=== PATIENT | male | born 1960 | race Caucasian/White ===

== ENCOUNTER 2023-07-28 10:45 | Outpatient (RCR) | payer MEDICARE, SELFPAY | END 2023-11-25 23:59 | disposition home or self-care (01) | PROVIDERS: PCP Surgery; Visit Provider Specialist | DX: Z48.89 Encounter for other specified surgical aftercare (principal); R29.898 Other symptoms and signs involving the musculoskeletal system; M25.69 Stiffness of other specified joint, not elsewhere classified; M54.50 Low back pain, unspecified; Z51.89 Encounter for other specified aftercare | CPT/HCPCS: 97112; 97162 ==

== ENCOUNTER 2024-12-11 09:04 | Outpatient (CLI) | payer MEDICARE, SELFPAY ==
--- NOTE | 2024-12-11 09:15 | CRLHL7_ITS ---
For Patients: As a result of the 21st Century Cures Act, medical imaging exams and procedure reports are released immediately into your electronic medical record. You may view this report before your referring provider. If you have questions, please contact your health care provider. INDICATION: Cervical spinal stenosis. COMPARISON: 03/17/2015. TECHNIQUE: Sagittal T1, T2, and STIR sequences. Axial T2/gradient sequences. FINDINGS: Degenerative anterolisthesis of C4 on C5 measures approximately 3 mm. Otherwise, normal facet alignment. No fractures. No vertebral body loss of height. Stable mature postoperative changes of anterior discectomy and fusion C6 through T1. Patchy T2 and STIR hyperintensity of the cord at C4-5 which may be secondary to chronic myelomalacia or spondylotic myelopathy. Normal signal intensity within the remainder of the cord. C1-2: No spinal canal narrowing. C2-3: Disc degeneration posterior disc bulge. No narrowing of the spinal canal. No neural foraminal narrowing. C3-4: Disk degeneration and posterior disc bulging disc osteophyte complex. Effacement of the ventral thecal sac. Combined with buckling of ligamentum flavum, there is moderate severe narrowing of spinal canal. Moderate severe narrowing of bilateral foramina potential impingement of the C4 nerve roots. C4-5: Grade 1 anterolisthesis. Disc degeneration and unroofed posterior disc bulge. Combined with buckling ligamentum flavum, there is severe narrowing of spinal canal. Severe narrowing of the bilateral foramina. Potential impingement of the C5 nerve roots. C5-6: Disc generation broad-based disc osteophyte complex. Mild narrowing of spinal canal. Moderate right and mild left neural foraminal narrowing. C6-7: Postoperative changes. No spinal canal neural foraminal narrowing. C7-T1: Postoperative changes. No narrowing of spinal canal. Mild narrowing of bilateral foramina. T1-2: Disk degeneration and posterior disc bulging disc osteophyte complex. Mild narrowing of the spinal canal. Moderate narrowing of bilateral foramina. IMPRESSION: 1. Degenerative anterolisthesis of C4 on C5. Otherwise normal alignment. No fractures 2. Stable mature postoperative changes anterior discectomy and fusion C6 through T1. 3. Patchy T2 and STIR hyperintensity of the cord at C4-5 which may be secondary to chronic myelomalacia or spondylotic myelopathy 4. Cervical spondylosis 5. At C3-4, moderate to severe narrowing of the spinal canal. Moderate to severe narrowing of the bilateral neural foramina. Potential impingement of the C4 nerve roots. 6. At C4-5, Severe narrowing of the spinal canal and bilateral neural foramina. Potential impingement of the C5 nerve roots. 7. At C5-6, Moderate right and mild left neural foraminal narrowing. 8. At T1-2, moderate narrowing of the bilateral neural foramina Dictated by Shahzad Adames MD @ 12/11/2024 3:07:33 PM (Electronically Signed)
== END 2024-12-11 09:05 | disposition home or self-care (01) ==
LOC: MRI 09:08
PROVIDERS: PCP Surgery; Visit Provider Surgery
DX: M48.02 Spinal stenosis, cervical region (principal); M47.892 Other spondylosis, cervical region; M50.21 Other cervical disc displacement, high cervical region; M50.222 Other cervical disc displacement at C5-C6 level; M54.12 Radiculopathy, cervical region
CPT/HCPCS: 72141

== ENCOUNTER 2025-01-02 08:05 | Outpatient (CLI) | payer MEDICARE, SELFPAY | END 2025-01-02 08:06 | disposition home or self-care (01) | LOC: MRI 08:07 | PROVIDERS: PCP Surgery; Visit Provider Specialist | DX: M54.50 Low back pain, unspecified (principal); M48.062 Spinal stenosis, lumbar region with neurogenic claudication; M51.27 Other intervertebral disc displacement, lumbosacral region | CPT/HCPCS: 72148 ==

== ENCOUNTER 2025-02-19 07:46 | Outpatient (CLI) | payer MEDICARE, SELFPAY | END 2025-02-19 07:47 | disposition home or self-care (01) | LOC: INJ CL 07:46 | PROVIDERS: PCP Surgery; Visit Provider Family Medicine | DX: M48.061 Spinal stenosis, lumbar region without neurogenic claudication (principal); M54.16 Radiculopathy, lumbar region | CPT/HCPCS: 64483; J1100; Q9966 ==

== ENCOUNTER 2025-04-30 09:03 | Outpatient (CLI) | payer MEDICARE, SELFPAY ==
--- OUTSIDE RECORDS SUMMARY | 2025-05-01 00:46 | XMS_ITS | Clinical Summary ---
Author Organization [employer] [facility] Address [address] [place] [id number] Care Team Providers Care Library Consultant Name Role Phone Syd José MD Primary Care Provider +- [phone] [facility] Care, [place] Unavailable Allergies Active Allergy Reactions Criticality Noted Date Comments Venom-Honey Bee Edema 12/27/2012 Grass Pollen Other - Describe In Comment Field 03/20/2021 Sneezing Oxycodone Other - Describe In Comment Field 11/25/2016 Patient states it does not work for pain for him. Tree And Shrub Pollen Other - Describe I n Comment Field 03/20/2021 Sneezing Unlisted Allergen (Include Detail In Comments) Angioedema High 01/16/2018 Pt states he is allergic to tree nuts. Medications EPINEPHrine (EPIPEN) 0.3 mg/0.3 mL injection Inject 0.3 mg intramuscular each time if needed for Allergic Reaction. 03/20/20 21 Active acetaminophen (TYLENOL EXTRA STRGTH) 500 mg tablet Take 1,000 mg by mouth every 6 hours if needed for Pain. Max acetaminophen dose: 4000mg in 24 hrs. Active amLODIPine (NORVASC) 10 mg tabletIndications: Hypertension Take 1 Tablet (10 mg) by mouth once daily. 90 Tablet 3 09/27/20 24 Active hydroCHLOROthiazid e 12.5 mg tabletIndications: Hypertension Take 1 Tablet (12.5 mg) by mouth once daily. 90 Tablet 3 09/27/20 24 Active losartan (COZAAR) 100 mg tabletIndications: Hypertension Take 1 Tablet (100 mg) by mouth once daily. 90 Tablet 3 09/27/20 24 Active diclofenac (VOLTAREN) 75 mg delayed-release tabletIndications: Polyarthralgia,Lum bar spondylosis,Genera lized osteoarthritis of multiple sites Take 1 Tablet (75 mg) by mouth two times daily with meals. 60 Tablet 3 01/10/20 25 Active cholecalciferol (Decara) 50,000 unit capsuleIndications :Vitamin D deficiency Take 1 Capsule (50,000 units) by mouth once weekly. 12 Capsule 01/16/20 25 Active DULoxetine 30 mg Delayed-release capsuleIndications :Generalized osteoarthritis of multiple sites Take 1 Capsule (30 mg) by mouth once daily. 60 Capsule 1 01/29/20 25 Active amitriptyline 10 mg tabletIndications: Cervical spinal stenosis TAKE ONE TABLET (10 MG) BY MOUTH EVERY DAY AT BEDTIME . 90 Tablet 3 02/13/20 25 Active gabapentin 300 mg capsuleIndications :Lumbosacral radiculopathy TAKE ONE CAPSULE (300 MG) BY MOUTH TWICE A DAY . 180 Capsule 3 02/10/20 25 Active Active Problems Problem Noted Date Diagnosed Date Ascending aorta dilatation 12/23/2024 Overview (12/23/2024): 4.0 cm on heartscan 12/2024 - repeat in 1 year Lumbosacral radiculopathy 04/19/20232022 Status post total replacement of right hip 10/24 Tobacco use 10/24/2019 Moderate episode of recurrent major depressive d isorder 04/17/2019 History of Alcohol use disorder 06/07/2018 DDD (degenerative disc disease), lumbar 12/03/19 16 Family history of malignant neoplasm of gastrointestinal tract 01/30/2013 Overview (03/31/2023): Colonoscopy 01/2013 normal repeat in 5 years Colonoscopy 03/2023 normal, repeat in 5 years Cluster headache 04/06/2011 Stenosis, cervical spine 07/06/2010 Hypertension 04/04/2009 Obesity, unspecified 05/15/2007 Hymenoptera allergy S/P lumbar spinal fusion Generalized anxiety disorder Resolved Problems Problem Noted Date Diagnosed Date Resolved Date Oxygen desaturation 04/19/2023 12/04/19 25 Bradycardia 04/19/2023 12/04/2024 Anxiety 10/24/2019 03/20/2021 Sore throat 08/12/2019 03/20/2021 Acute encephalopathy 08/08/2019 021 Suzanne 08/08/2019 03/20/2021 Acute confusion 08/06/2019 08/08/2019 Personality disorder 08/02/2019 021 Arthritis of right hip 08/02/201903/20 Right hip pain 08/02/2019 03/20/2021 Arthritis of left hip 08/02/20192020 Left hip pain 08/02/2019 03/20/2021 Routine adult health maintenance 03/14/2018 03/20/2021 Overview (03/14/2018): Colonoscopy 03/2018 normal, repeat in 5 years Controlled substance agreement terminated 06/16/2017 12/04/2024 Lumbar stenosis 11/23/2016 03/20/2021 Elevated partial thromboplastin time (PTT) 11/23/2016 05/13/2022 Bradycardia 11/23/2016 03/20/2021 Pain medication agreement 10/28/2016 Overview (10/28/2016): Prescriber: Dr. Foster Mo, [facility] Juan Altamirano MD Ok to fill at same amount/dose/frequency in my absence. Controlled substance agreement: 10/28/16 COMPOUNDING ASSISTANT query on 10/28/16 was acceptable. Last UDS on (none on file). Lumbar facet arthropathy 12/03/2015 Lumbar radicular pain 12/03/20152020 Tobacco use disorder 05/15/2007 021 Headache(784.0) 05/15/2007 04/06/2011 Postoperative back pain 03/07 Acute post-operative pain History of Opioid dependence , continuous, now in remission 07/14/2022 Wound infection after surgery 03/20/2021 Encounters Date Type Department Care Team Description 04/30/2025 9:40 AM CDT Office Visit [facility] at [address] [address] Foster Mo MD Procedure (Bilateral L5-S1 TFESI) 04/25/2025 10:30 AM CDT Procedure Only [facility] [address] [facility] [place] [address] Vida Huang L Ac Acupuncture 04/25/2025 Travel 04/18/2025 10:30 AM CDT Procedure Only [facility] [address] [facility] [address] Vida Huang L Ac Acupuncture 04/18/2025 Travel 04/12/2025 11:00 AM CDT Procedure Only [facility] [address] [facility] [place] [address] Vida Huang L Ac Acupuncture 04/12/2025 Travel 04/10/2025 11:20 AM CDT Office Visit [facility] [address] [place] [address] Foster Mo MD Musculoskeletal Problem (Follow up back pain, JUAN on 02/19/25/Consult neck pain) 04/10/2025 Travel 04/05/2025 10:00 AM CDT Procedure Only [facility] [address] [facility] [place] [address] Vida Huang, Denise Ac Acupuncture 04/05/2025 Travel 03/29/2025 10:00 AM CDT Procedure Only [facility] [address] [place] [place] [address] Vida Huang L Ac Acupuncture 03/29/2025 Travel 03/22/2025 10:00 AM CDT Procedure Only [facility] [address] [facility] [place] [address] Vida Huang L Ac Acupuncture 03/22/2025 Travel 03/15/2025 10:00 AM CDT Procedure Only [facility] [address] [place] [address] Vida Huang L Ac Acupuncture 03/15/2025 Travel 03/08/2025 10:00 AM CDT Procedure Only [facility] [address] [place] [address] Vida Huang L Ac Acupuncture 03/08/2025 Telephone [facility] [address] [place] [address] Foster Mo MD Follow Up (Epidural shot) 03/08/2025 Telephone [facility] [address] [place] [address] Foster Mo MD Appointment Request 03/08/2025 Travel 03/01/2025 8:00 AM CDT Procedure Only [address] [address] Vida Huang L Ac Acupuncture 03/01/2025 Travel 02/22/2025 10:00 AM CDT Procedure Only [address] [address] Vida Huang L Ac Acupuncture 02/22/2025 Travel 02/19/2025 8:20 AM CDT Office Visit [facility] at [address] [address] Foster Mo MD Procedure (Right L5-S1 TFESI) 02/14/2025 10:30 AM CDT Procedure Only [address] [address] Vida Huang L Ac Acupuncture 02/14/2025 Travel 02/08/[address] [address] Syd José MD Refill Request (Gabapentin) 02/07/[address] [address] Syd José MD Refill Request (Amitriptyline) 02/06/2025 10:00 AM CDT Procedure Only [address] [address] Vida Huang L Ac Acupuncture 02/06/2025 Travel 02/06/2025 Orders Only [facility] [address] [facility] [address] Foster Mo MD <No scans attached> 01/30/2025 10:30 AM CDT Procedure Only [facility] [address] [place] [address] Vida Huang L Ac Acupuncture 01/30/2025 Telephone [facility] [address] [place] [address] Syd José MD Results (CT cardiac scan) 01/30/2025 Travel from Last 3 Months Immunizations Immunization Administration Dates Next Due COVID-19 VACCINE SPIKEVAX (M ODERNA 50MCG/0.5ML) 12YO+ PFS 12/04/2024,09/20/2023 COVID-19 vaccine (Pfizer-Bio NTech 30mcg/0.3mL) 12YO+ BIVALENT PF, MDV 10/12/2022 COVID-19 vaccine (Pfizer-Bio NTech 30mcg/0.3mL) 12YO+ KEVIN-SUCROSE PF, MDV 05/13/2022 COVID-19 vaccine (Pfizer-Bio NTech 30mcg/0.3mL) PF, MDV 02/25/2021,02/04/2021 HepA-HepB (Twinrix) 04/11/2012 INFLUENZA, IIV3 PF (AGE >= 6 MO) 12/04/2024 Influenza, IIV3 (Age >=3 years) 10/26/2013,11/17 Influenza, IIV4 09/20/2023,,11/12/2021,2018,08/04/2018,07/23/2016,08/02/2014 Pneumococcal Conj 20-valent (Prevnar 20) 05/13/2022 Td (Age >=7 Years) 05/13/2022,09/24/2003, 990 Tdap 04/27/2011 Typhoid (injectable) 04/11/2012 Zoster (Shingrix-RZV, recombinant) 05/13/2022, Family History Medical History Relation Name Comments Heart Disease Brother 5 tachycardia wi th exercise Alcohol/Drug Brother 6 Alcohol/Drug Brother 7 Alcohol/Drug Brother 8 Alcohol/Drug Brother 9 Cancer Father esophageal Heart Disease Father Hypertension Father Alcohol/Drug Maternal Uncle severe chroni c Heart Disease Mother OK in 2009 Other Mother colon polyp Heart Disease Paternal Grandfather Relation Name Status Comments Brother 1 Alive Brother 2 Alive Brother 3 Alive Brother 4 Alive Brother 5 Brother 6 Brother 7 Brother 8 Brother 9 Father (Age 68) esophageal cancer Maternal Uncle Mother Alive Paternal Grandfather (Age 68) Social History Tobacco Use Types Packs/Day Years Used Date Smoking Tobacco: Every Day Cigarettes 1 25 Smokeless Tobacco: Never Tobacco Cessation:Ready to Q uit: No; Counseling Given: Yes Comments:trying to quit Alcohol Use Standard Drinks/Week Comments No 12 (1 standard drink = 0.6 oz pure alcohol) Finished 30 day treatment on 02/14/18 PHQ-2 Answer Date Recorded PHQ-2 TOTAL SCORE 1 12/04/2024 Social Connections Answer Date Recorded Frequency of Communication with Friends and Fami ly 4 06/21/2023 Financial Resource Strain Answer Date R ecorded Difficulty of Paying Living Expenses 1 06/27/2024 Difficulty of Paying Living Expenses Not on file 06/27/2024 Food Insecurity Answer Date Recorded Worried About Running Out of Food in the Last Ye ar 1 06/21/2023 Transportation Needs Answer Date Record ed Does lack of transportation keep you from medical appointments? 1 06/27/2024 Lack of Transportation (Other) Not on file 0 06/27/2024 Housing Stability Answer Date Recorded What is your housing situation today? 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 Not on file Not on file Obstetrics History Last Filed Vital Signs Vital Sign Reading Time Taken Comments Blood Pressure 153/84 04/10/2025 11:21 AM CDT Pulse 69 04/10/2025 11:21 AM CDT Temperature 37.4 C (99.4 F) 04/10/2025 11:21 AM CDT Respiratory Rate 20 05/18/2023 10:2 1 AM CDT Oxygen Saturation 97% 04/10/2025 11: 21 AM CDT Inhaled Oxygen Concentration - - Weight 111.7 kg (246 lb 3.2 oz) 025 11:21 AM CDT shoes on Height 172.3 cm (5' 7.84) 01/28/2025 1 2:01 PM CDT Body Mass Index 37.61 01/28/2025 12:01 PM CDT Plan of Treatment Upcoming Encounters Date Type Department Care Team (Latest Contact Info) Description 05/02/2025 10:30 AM CDT Procedure Only [facility] [address] [place] [address] Vida Huang L Ac [address] [place] [address] 05/03/2025 9:10 AM CDT Office Visit [facility] [address] [place] [address] Syd José MD [address] [place] [address] 05/08/2025 10:40 AM CDT Office Visit [facility] [address] [place] [address] Foster Mo MD [address] [place] [address] 05/09/2025 10:30 AM CDT Procedure Only [facility] [address] [place] [address] Vida Huang L Ac [address] [place] [address] 05/15/2025 7:00 AM CDT Hospital Encounter [facility] [address] [place] [address] Maria Fernanda Laguerre MD [address] [place] [address] 05/15/2025 7:00 AM CDT - 05/15/2025 3:12 PM CDT Surgery [facility] [address] [place] [address] Maria Fernanda Laguerre MD [address] [place] [address] ACDF - Anterior Cervical Decompression Fusion Levels: C3 to: C6 PSF with Inst - Posterior Spine Fusion with Instrumentation Levels: C3 to: C7 05/15/2025 7:45 AM CDT Appointment [facility] [address] [facility] [address] [place] [address] Quincy Cerda MD [address] [facility] [address] [place] [address] Zachary Sanz [address] [facility] [address] [place] [address] 05/16/2025 10:30 AM CDT Procedure Only [facility] [address] [place] [address] Vida Huang L Ac [address] [place] [address] 07/29/2025 11:00 AM CDT Office Visit [facility] [address] [id number] [place] [address] [place], [place] [phone] Scheduled Procedures Name Priority Associated Diagnoses Date/Ti me FUSION ANTERIOR POSTERIOR CERVICAL LEVEL 04 Tier 2 1) Stenosis, Cervical M48.02 2) Myelopathy G95.9 05/15/2025 7:00 AM CDT Health Maintenance Due Date Last Done Comments HIV for age 15-65 1976 Hepatitis B series for 19+ ( 2 of 3 - Hep B Twinrix 3-dose series) 05/09/2012 04/11/[address] (for lung CA) ag e 50-80 06/08/2025 06/08/2024, 06/02/2023, 06/01/2022 Depression screening for age 12+ 12/07/2025 12/07/2024, 12/05/2024, 12/04/2024, Additional history exists BMI (ht and wt on same day) for age 18+ 01/28/2026 01/28/2025, 12/04/2024, 10/26/2024, Additional history exists Colonoscopy through age 75 03/31/202803/31, 03/31/2023, 03/14/2018, Additional history exists Lipids for age 45-75 10/26/2029 10/26/2024, 09/20/2023, 05/13/2022, Additional history exists Tetanus booster 05/13/2032 05/13/2022, 04/08, 09/24/2003, Additional history exists RSV vaccine for adults or (1 - 1-dose 75+ series) 2036 Tdap Completed 04/27/2011 Hepatitis C screening for ag e 18-79 Completed 03/20/2021 Pneumococcal series for age 50+ Completed Zoster (shingles) series for age 50+ Completed 05/13/2022, 03/20/2021 COVID-19 vaccine series Completed 12/04/19, 09/20/2023, 10/12/2022, Additional history exists Influenza Vaccine Completed 12/04/2024, , 10/12/2022, Additional history exists Goals Goal Patient Goal Type Associated Problems Recent Progress Patient-Stated? Author Autogenera irwin Goal Care Plan Autogenerated Problem No Daniel Osorio [employer] Devices Implanted Type Area Maintenance Mechanic 2Nd Shift Device Identifier Shelf Expiration Date Model / Serial / Lot Screw 3.5x15 Zephir Self Tap - [id number] Implanted:Qty: 3 on 07/15/2010 at [facility] Spine Implants N/A: Spine SOFAMOR DANEK [id number]# / / Screw Canclls 4.0x15mm [id number] - [id number] Implanted:Qty: 2 on 07/15/2010 at [facility] Spine Implants N/A: Spine SOFAMOR DANEK [id number]# / / [id number] putty Progenix Dbm 1cc [[id number]] Implanted:Qty: 1 on 07/15/2010 at [facility] Explanted:at [facility] (Quantity not on file) Spine Medtronic 02/26/2012 [id number]# / [id number] 20 / Plate 42.5mm Zephir - [id number] Implanted:Qty: 1 on 07/15/2010 at [facility] N/A: Spine SOFAMOR DANEK [id number]# / / Cornerstone Psr [id number] - [id number] Implanted:Qty: 1 on 07/15/2010 at [facility] Spine SOFAMOR DANEK 12/02/2017 [id number]# / / [id number] Cornerstone Psr [id number] - [id number] Implanted:Qty: 1 on 07/15/2010 at [facility] Spine SOFAMOR DANEK 05/01/2018 [id number]# / / [id number] Canclls Chips 15cc [[id number]][[id number] ] Implanted:Qty: 1 on 2011 at [facility] Explanted:at [facility] (Quantity not on file) Spine Musculoskeletal Transplant 01/18/2014 [id number]# / [id number] / Plate Ti Recon 12mm 2 Holes Sm Notched Spacing - [id number] Implanted:Qty: 2 on 2011 at [facility] 489.415# / / Screw Canclls Bone 12mm - [id number] Implanted:Qty: 3 on 2011 at [facility] Embedly 409.012# / / Screw Canclls 4.1uyo1zd Full Thread 409.014 - [id number] Implanted:Qty: 1 on 2011 at [facility] Embedly 409.014# / / [id number] bone 1-4mm 30cc Medtronic Chips Canclls Freeze Dried Implanted:Qty: 1 on 11/23/2016 by Maria Fernanda Laguerre MD at [facility] Explanted:at [facility] (Quantity not on file) N/A: Spine Medtronic Spine/Ortho 09/08/2021 [id number]# / [id number] / Spacer Lmbr [id number] Zyston Convex Stra Plif - [id number] Implanted:Qty: 1 on 11/23/2016 by Maria Fernanda Laguerre MD at [facility] N/A: Spine Roberta Biomet 14-48860 5# / / [id number] Screw Lmbr Post 6.5x45mm Vitality Va - [id number] Implanted:Qty: 4 on 11/23/2016 by Maria Fernanda Laguerre MD at [facility] N/A: Spine Roberta Biomet Spine 07.77501 .075# / / Set Screw Lmbr 5.5-6mm Vitality Torque - [id number] Implanted:Qty: 4 on 11/23/2016 by Maria Fernanda Laguerre MD at [facility] N/A: Spine Roberta Biomet Spine 07.51869 .001# / / Champ Lmbr 45x5.5mm Vitality Cvd Titnm - [id number] Implanted:Qty: 2 on 11/23/2016 by Maria Fernanda Laguerre MD at [facility] N/A: Spine Roberta Biomet Spine 07.12945 .006# / / Cnnctr Lmbr 51-70mmx5.5 Wide Vitality Transverse Adjust - [id number] Implanted:Qty: 1 on 11/23/2016 by Maria Fernanda Laguerre MD at [facility] N/A: Spine Roberta Biomet Spine 07.08684 .004# / / Spacer Lmbr [id number] Zyston Convex Stra Plif - [id number] Implanted:Qty: 1 on 11/23/2016 by Maria Fernanda Laguerre MD at [facility] N/A: Spine Roberta Biomet [id number] 5# / / [id number] bone Matrix 6cc Huong Dbf Putty Dbm Implanted:Qty: 1 on 11/23/2016 by Maria Fernanda Laguerre MD at [facility] Explanted:at [facility] (Quantity not on file) N/A: Spine Medtronic Spine/Ortho 09/09/2018 [id number]# / [id number] / Trident Ii Tritanium Clusterhole Acetabular Shell Implanted:Qty: 1 on 10/24/2019 by Chun Raza MD at [facility] Right: Hip [employer] 12/01/2023 702-04-5 6F / / [id number] A 6.5mm Low Profile Hex Screw Implanted:Qty: 1 on 10/24/2019 by Chun Raza MD at [facility] Right: Hip [employer] 05/26/2024 7030-652 5 / / [id number] Trident X3 10 Degree Polyethylene Insert Implanted:Qty: 1 on 10/24/2019 by Chun Raza MD at [facility] Right: Hip [employer] 01/18/2024 623-10-3 6F / / [id number] Hex Dome Hole Plug Implanted:Qty: 1 on 10/24/2019 by Chun Raza MD at [facility] Right: Hip [employer] 03/01/2024 7060-000 0 / / [id number] Accolade Ii 127 Degree Neck Angle Hip Stem Implanted:Qty: 1 on 10/24/2019 by Chun Raza MD at [facility] Right: Hip [employer] 12/27/2022 6721-073 7 / / [id number] Biolox Delta Ceramic V40 Femoral Head Implanted:Qty: 1 on 10/24/2019 by Chun Raza MD at [facility] Right: Hip [employer] 10/05/2023 6570-0-5 36 / / [id number] bone 1-4mm 30cc Medtronic Chips Canclls Freeze Dried Implanted:Qty: 1 on 04/19/2023 by Maria Fernanda Laguerre MD at [facility] N/A: Spine Medtronic Spine/Ortho 11/09/2026 [id number] / [id number] / Bone Matrix 3cc [place] Dbf Putty Dbm - [id number] Implanted:Qty: 1 on 04/19/2023 by Maria Fernanda Laguerre MD at [facility] N/A: Spine Medtronic Spine/Ortho 03/20/2025 [id number] / [id number] / Spacer Lmbr [id number] Zyston Convex Stra Tlif - [id number] Implanted:Qty: 1 on 04/19/2023 by Maria Fernanda Laguerre MD at [facility] N/A: Spine Roberta Biomet [id number] 4 / / [id number] Screw Poly 6.5 X 50 Implanted:Qty: 2 on 04/19/2023 by Maria Fernanda Laguerre MD at [facility] N/A: Spine [id number] / / Description:SCREW POLY 6.5 X 50 Champ Lmbr 70x5.5mm Vitality Cvd Titnm - [id number] Implanted:Qty: 1 on 04/19/2023 by Maria Fernanda Laguerre MD at [facility] N/A: Spine Roberta Biomet Spine 07.84456 .011 / / Champ Lmbr 75x5.5mm Vitality Cvd Titnm - [id number] Implanted:Qty: 1 on 04/19/2023 by Maria Fernanda Laguerre MD at [facility] N/A: Spine Roberta Biomet Spine 07.30881 .012 / / Set Screw Lmbr 5.5-6mm Vitality Torque - [id number] Implanted:Qty: 6 on 04/19/2023 by Maria Fernanda Laguerre MD at [facility] N/A: Spine Roberta Biomet Spine 07.89265 .001 / / Explanted Type Area Maintenance Mechanic 2Nd Shift Device Identifier Shelf Expiration Date Model / Serial / Lot Explant Explanted:Qty: 1 on 04/19/2023 by Maria Fernanda Laguerre MD at [facility] Description:4 SET SCREWS, 2 RODS, 1 CROSS LINK Procedures Procedure Name Priority Date/Time Associated Diagnosis Comments AMB EPIDURAL STEROID INJECTION Routine 04/30/2025 7:59 AM CDT Lumbar foraminal stenosis Lumbar radiculopathy S/P lumbar spinal fusion ACUPUNCTURE PLAN OF CARE Routine 04/25/2025 12:29 PM CDT Other low back pain ACUPUNCTURE PLAN OF CARE Routine 04/18/2025 12:58 PM CDT Other low back pain ACUPUNCTURE PLAN OF CARE Routine 04/12/2025 11:52 AM CDT Other low back pain ACUPUNCTURE PLAN OF CARE Routine 04/05/2025 11:57 AM CDT Other low back pain ACUPUNCTURE PLAN OF CARE Routine 03/29/2025 12:36 PM CDT Other low back pain ACUPUNCTURE PLAN OF CARE Routine 03/22/2025 2:11 PM CDT Other low back pain ACUPUNCTURE PLAN OF CARE Routine 03/15/2025 10:52 AM CDT Other low back pain ACUPUNCTURE PLAN OF CARE Routine 03/08/2025 11:16 AM CDT Other low back pain ACUPUNCTURE PLAN OF CARE Routine 03/01/2025 8:38 AM CDT Other low back pain ACUPUNCTURE PLAN OF CARE Routine 02/22/2025 10:02 AM CDT Other low back pain AMB EPIDURAL STEROID INJECTION Routine 02/19/2025 12:00 AM CDT Lumbar foraminal stenosis Lumbar radiculopathy S/P lumbar spinal fusion ACUPUNCTURE PLAN OF CARE Routine 02/14/2025 11:31 AM CDT Other low back pain ACUPUNCTURE PLAN OF CARE Routine 02/06/2025 3:14 PM CDT Other low back pain ACUPUNCTURE PLAN OF CARE Routine 01/30/2025 11:03 AM CDT Other low back pain LIPID PANEL Routine 10/26/2024 12:10 PM FRAME STRAIGHTENER Hyperlipidemia, unspecified hyperlipidemia type CT CHEST SCREENING LOW DOSE WO CONTRAST Routine 06/08/2024 2:47 PM CDT Encounter for screening for lung cancer Smoker COLONOSCOPY 03/31/2023 10:43 AM CDT ANTI HCV Routine 03/20/2021 10:15 AM CDT Need for hepatitis C screening test from Last 3 Months or Most Recently Relevant to Health Maintenance Results * AMB EPIDURAL STEROID INJECTION (02/19/2025 12:00 AM CDT) us Foster Mo MD NEUROLOGY ORD Final Resu lt * (ABNORMAL) LIPID PANEL (10/26/2024 12:10 PM FRAME STRAIGHTENER) CHOLESTEROL, TOTAL 199 <200 mg/dL [facility] HDL CHOLESTEROL 44 > OR = 40 mg/dL [facility] TRIGLYCERIDES 88 <150 mg/dL [facility] LDL-CHOLESTEROL 136(H) mg/dL (calc) [facility] Comment: Reference range: <100 Desirable range <100 mg/dL for primary prevention; <70 mg/dL for patients with CHD or diabetic patients with > or = 2 CHD risk factors. LDL-C is now calculated using the Anthony calculation, which is a validated novel method providing better accuracy than the Friedewald equation in the estimation of LDL-C. Evert SS et al. EDDIE. 2013;310(19): 2090-5371 (http://education.[employer]/faq/LEJ417) CHOL/HDLC RATIO 4.5 <5.0 (calc) [facility] NON HDL CHOLESTEROL 155(H) <130 mg/dL (calc) [facility] Comment: For patients with diabetes plus 1 major ASCVD risk factor, treating to a non-HDL-C goal of <100 mg/dL (LDL-C of <70 mg/dL) is considered a therapeutic option. Blood BLOOD SPECIMEN / Unknown 10/26/2024 12:10 PM FRAME STRAIGHTENER 10/26/2024 12:11 PM FRAME STRAIGHTENER Syd José MD CHEMISTRY Final Resu lt [place] [facility] [address] [place] [address], [facility] [address] [place] [address] * CT CHEST SCREENING LOW DOSE WO CONTRAST (06/08/2024 2:47 PM CDT) Anatomical Region Laterality Modality Computed Tomogra phy Impressions 06/11/2024 9:28 AM CDT Stable small RIGHT upper lobe pulmonary nodule. Lung rads category 2, benign. Continue annual screening with low-dose chest CT in 12 months. Please note that all CT scans at this facility use dose modulation, iterative reconstruction and/or weight-based dosing when appropriate to reduce radiation dose to as low as reasonably achievable. Dictated by: Adonis Wade MD @06/09/2024 9:45:48 AM Neuroradiologist Narrative 06/11/2024 9:28 AM CDT For Patients: As a result of the Century Cures Act, medical imaging exams and procedure reports are released immediately into your electronic medical record. You may view this report before your referring provider. If you have questions, please contact your health care provider. CT CHEST SCREENING LOW-DOSE WITHOUT CONTRAST 06/08/2024 INDICATION: Lung cancer screening. TECHNIQUE: Noncontrast CT images of the chest. COMPARISON: CT chest 06/02/2023. FINDINGS: Stable 4 mm solid nodule RIGHT apex (series 3 image 36). Calcified granulomas in the RIGHT middle and RIGHT upper lobes. No new or enlarging pulmonary nodules. No focal consolidation, pleural effusion, or pneumothorax. Mild upper lobe predominant emphysema. The heart size is normal. No pericardial effusion. Mild coronary atherosclerotic calcifications. No mediastinal or hilar adenopathy. Borderline diffuse hepatic steatosis. Multilevel thoracic spondylosis. No aggressive osseous lesions. Postsurgical changes of anterior fusion in the visualized lower cervical and upper thoracic spine. us Syd José MD CT Final Resu lt * COLONOSCOPY (03/31/2023 10:43 AM CDT) 03/31/2023 10:4 3 AM CDT Narrative Transcriptions Evert Jackman MD - 03/31/2023 11:21 AM CDT Patient Name: Navid Stein Procedure Date: 03/31/2023 Gender: Male Date of : 1960 Admit Type: Outpatient Procedure: Colonoscopy Proceduralist: Evert Jackman MD , Zoe Ornelas RN(Nurse), Millicent Tai (Nurse) Indications/Pre-Op Diagnosis: Screening in patient at increased risk:Family history of 1st-degree relative withcolorectal cancer Medications: Fentanyl 100 micrograms IV, Midazolam 4 mgIV, The level of sedation administered wasmoderate Procedure Description: The patient had risks, benefits and alternatives explained to andgave informed consent. The patient had a stable cardiopulmonary status and judged an adequate candidate for conscious sedation. The endoscope [id number] [id number] was passed through the anus andadvanced to the cecum, identified by appendiceal orifice and ileocecal valve.The colonoscopy was performed without difficulty. The patient toleratedthe procedure well. The quality of the bowel preparation was good. The ileocecal valve, appendiceal orifice, and rectum were photographed. Complications: No immediate complications. Estimated Blood Loss & Specimen: Estimated blood loss: none. Specimen collected - None Findings: The perianal and digital rectal examinations were normal. The entire examined colon appeared normal. Impressions/Post-Op Diagnosis: - The entire examined colon is normal. - No specimens collected. Recommendation: - Patient has a contact number available for emergencies. The signsand symptoms of potential delayed complications were discussed with the patient. Return to normal activities tomorrow. Written discharge instructions were provided to the patient. - Resume previous diet. - Continue present medications. - Repeat colonoscopy in 5 years for screening purposes. Moderate Sedation: A time out was performed before the procedure. Moderate (conscious) sedation was administered by the endoscopy nurse and supervised bythe endoscopist. The following parameters were monitored: oxygensaturation, heart rate, blood pressure, EKG, CO2, respiratory rate, adequacy of pulmonary ventilation and reponse to care. Please refer to the patient's medical record flowsheets and nursing notes for moderate sedation details. Total physician intraservice time was 15 minutes. Evert Jackman MD 03/31/2023 11:21:25 AM This report has been signed electronically. Note Initiated On: 03/31/2023 10:43 AM Procedure Code(s): --- Professional --- 98596, Colonoscopy, flexible; diagnostic, including collection of specimen(s) bybrushing or washing, when performed (separateprocedure) Diagnosis Code(s): --- Professional --- Z80.0, Family history of malignant neoplasmof digestive organs CPT copyright 2021 [employer]. All rights reserved. The codes documented in this report are preliminary and upon rental counter clerk reviewmay be revised to meet current compliance requirements. Scope In: 11:01:52 AM Scope Withdrawal Time 0 hours 7 minutes 11 seconds Scope Out: 11:14:01 AM us Evert Jackman MD PROCEDURE ORD Final Res ult * ANTI HCV (03/20/2021 10:15 AM CDT) HEPATITIS C ANTIBODY Non-React rere Non-React rere 03/20/2021 5:40 PM CDT [facility] Comment:Antibodies to HCV no t detected; does not exclude the possibility of exposure to HCV. Blood BLOOD SPECIMEN / Unknown Venipuncture / Unknown 03/20/2021 10:15 AM CDT 03/20/2021 10:15 AM CDT us Syd José MD SEND OUTS Final Resu lt [facility] [address] [place] [address], [place] from Last 3 Months or Most Recently Relevant to Health Maintenance Additional Health Concerns Active Problems Noted Date Diagnosed Date Autogenerated Problem 04/15/2025 Insurance MEDICARE PART A HB ONLY [employer] MEDICARE ADVANTAGE MR HC UCARE MEDICARE PDGM [facility] Member Subscriber Plan / Payer (Ef fective 2015-Present) Name:Navid Stein Relation to Subscriber:Self Name:Navid Stein Payer ID:Not on file Group ID:Not on file Type:Not on file Address: [address] [place] [id number] Advance Directives * Full Code (Latest Code Status on File) Date Activated Date Inactivated Comments 04/19/2023 5:20 PM 04/21/2023 5:52 PM Question Answer Comments Code Status Discussion: Unable to Assess Preferences, Provider to review later * Full Code Date Activated Date Inactivated Comments 10/24/2019 6:03 AM 10/25/2019 3:08 PM Question Answer Comments Code Status Discussion: Discussed * Full Code Date Activated Date Inactivated Comments 08/08/2019 9:21 PM 08/13/2019 8:54 PM * Full Code Date Activated Date Inactivated Comments 08/06/2019 1:06 AM 08/08/2019 8:25 PM Question Answer Comments Code Status Discussion: Per Advance Care Plan * Full Code Date Activated Date Inactivated Comments 12/14/2016 2:27 PM 12/16/2016 8:38 PM Care Teams Library Consultant Relationship Specialty Start Date End Date Syd José MD [address] [place] [address] PCP - General Family Practice 03/20/[address] [address] 04/22/23
--- OUTSIDE RECORDS SUMMARY | 2025-05-01 00:46 | XMS_ITS | Clinical Summary ---
Author Organization [facility] Address [address] [place] [address] Care Team Providers Care Senior Abap Developer Name Role Phone Juan Altamirano MD Primary Care Provider [phone]- [phone] Source Comments You are receiving this document as you are listed as the primary care provider,follow-up provider, or the patient has been referred to you for consultation.This is in compliance with the Medicare and[facility] Cent[facility] EHR Incentive Program,which states Providers who transition their patient to another setting of careor provider of care or refers their patient to another provider of care shouldprovide summary care record for each transition of care or referral. [facility] Allergies Active Allergy Reactions Criticality Noted Date Comments Bee Venom Edema,generalized 12/27/2012 Nuts 04/08/2020 Pt states he is allergic to tree nuts. Oxycodone Other, see comments 11/25/2016 Patient states it does not work for pain for him. Medications amoxicillin (AMOXIL) 500 MG capsule 1 Capsule (500 mg). Dental visits only 01/19/2020 Active losartan-hydroc hlorothiazide (HYZAAR) 50-12.5 MG tablet Take 1 Tablet by mouth daily. Active Active Problems Problem Noted Date Diagnosed Date Primary osteoarthritis of left hip 03/19/2020 Overview (03/19/2020): Added automatically from request for surgery [id number] Social History Tobacco Use Types Packs/Day Years Used Date Smoking Tobacco: Never Assessed Sex and Gender Information Value Date Recorded Sex Assigned at Not on file Legal Sex Male 6:56 AM CDT Gender Identity Not on file Sexual Orientation Not on file Last Filed Vital Signs Vital Sign Reading Time Taken Comments Blood Pressure 126/79 04/12/2020 8:33 AM CDT Pulse 60 04/12/2020 8:33 AM CDT Temperature 36.9 C (98.5 F) 04/12/2020 8:33 AM CDT Respiratory Rate 16 04/12/2020 8:33 AM CDT Oxygen Saturation 98% 04/12/2020 8:33 AM CDT Inhaled Oxygen Concentration - - Weight 104.3 kg (230 lb) 04/11/2020 6:20 AM CDT Height 175.3 cm (5' 9) 04/11/2020 6:20 AM CDT Body Mass Index 33.97 04/11/2020 6:20 AM CDT Plan of Treatment Health Maintenance Due Date Last Done Comments Colon Cancer Screening Plan Due 1960 Hep C Screening (Preventive Services) 1960 HIV Screening (Preventive Services) 1977 Cholesterol 1996 DTaP/Tdap/Td Vaccine (2 - Tdap) 04/27/2021 04/27/2011 Medicare Annual Wellness Visit 11/07/2024 Lung Cancer Screening 06/08/2025 06/08/2024 , 06/02/2023, 06/01/2022 PSA Screening Discussion 10/26/2025 10/26/2024 RSV Vaccine (1 - 1-dose 75+ series) 2036 HepA Vaccine Aged Out 04/11/2012 No longer eligi ble based on patient's age to complete this topic Pneumococcal Vaccine 50+ Yrs Completed 05/13/2022 Zoster/Shingles Vaccine Completed 05/13/2022, 03/20 COVID-19 Vaccine Completed 12/04/2024, , 10/12/2022, Additional history exists Influenza Vaccine Completed 12/04/2024, , 10/12/2022, Additional history exists HepB Vaccine Aged Out No longer eligi ble based on patient's age to complete this topic Hib Vaccine Aged Out No longer eligi ble based on patient's age to complete this topic IPV (Polio) Vaccine Aged Out No longe r eligible based on patient's age to complete this topic MCV4 Vaccine Aged Out No longer eligi ble based on patient's age to complete this topic Meningococcal B Vaccine Aged Out No l onger eligible based on patient's age to complete this topic Medical Devices Implanted Type Area Campaign Associate Device Identifier Shelf Expiration Date Model / Serial / Lot Liner Dual Mobility G7 46mm G - [id number] Implanted:Qty: 1 on 04/11/2020 at [facility] DEVICE Left: HIP [employer] Orthopedics 07/17/2029 [id number] / / [id number] Scr Sftp 6.5x20 - [id number] Implanted:Qty: 1 on 04/11/2020 by Bob Massey MD at [facility] DEVICE Left: HIP [employer] 12/07/2027 [id number] / / [id number] Scr Sftp 6.5x30 - [id number] Implanted:Qty: 1 on 04/11/2020 by Bob Massey MD at [facility] DEVICE Left: HIP [employer] 01/05/2028 [id number] / / [id number] Scr Sftp 6.5x25 - [id number] Implanted:Qty: 1 on 04/11/2020 by Bob Massey MD at [facility] DEVICE Left: HIP [employer] 07/07/2028 [id number] / / [id number] - [id number] Implanted:Qty: 1 on 04/11/2020 by Bob Massey MD at [facility] Left: HIP 04/28/2029 [id number] / / [id number] Description:Biomet G7 acetab ular shell 3-hole cementless [id number] - [id number] Implanted:Qty: 1 on 04/11/2020 by Bob Massey MD at [facility] Left: HIP 06/02/2029 [id number] / / [id number] Description:Biomet taperloc complete primary femoral porous coated stem reduced distal 15 x 150mm high offset type 1 taper cementless [id number] - [id number] Implanted:Qty: 1 on 04/11/2020 by Bob Massey MD at [facility] Left: HIP 01/24/2029 [id number] / / [id number] Description:Biomet ceramic h ead type 1 taper, 28mm +3 neck [id number] - [id number] Implanted:Qty: 1 on 04/11/2020 by Bob Massey MD at [facility] Left: HIP 08/06/2024 [id number] / / [id number] Description:Biomet dual mobi lity bearing 46mm Insurance [facility] MEDICARE Advance Directives * Full Code (Latest Code Status on File) Date Activated Date Inactivated Comments 04/11/2020 10:42 AM 04/12/2020 4:44 PM Care Teams Senior Abap Developer Relationship Specialty Start Date End Date Juan Altamirano MD [address] [address] PCP - General Family Practice 04/09/20
== END 2025-04-30 09:04 | disposition home or self-care (01) ==
LOC: INJ CL 09:05
PROVIDERS: PCP Surgery; Visit Provider Family Medicine
DX: M54.16 Radiculopathy, lumbar region (principal); M51.369 Other intervertebral disc degeneration, lumbar region without mention of lumbar back pain or lower extremity pain
CPT/HCPCS: 64483; J1100; Q9966